=== PATIENT | male | born 1955 | race Caucasian/White ===

== ENCOUNTER → 2016-06-27 | Outpatient (CLI) | payer OTHER ==
--- NOTE | 2016-06-27 12:58 | CONS ---
DATE OF CONSULTATION: Consultation note for panic attacks. This is a 61-year-old male patient who is coming in today, reporting to snore and reporting to wake up with panic attacks. He reports episodes of at least twice or 3 times where he wakes up in the middle of the night, very much anxious and panicky and these panic attacks at times are very bad to the point where the patient feels the room is squeezing on him and he has to leave the house, drive around and relax and calm down for around 1/2 hour to 45 minutes. Following that, he is able to come back home and go to bed. The patient is a . He has no history of PTSD. No history of nightmares. He has occasional dreams. No anxiety. No depression. Of interest is that these episodes do not occur during the day and predominantly occurring at night. He tells me that there have been constantly occurring for the past 10 years in a frequency of twice or 3 times a month. Denies having to wake up in the middle of night choking or gasping for air. No reported witnessed apneas according to the . He goes to bed around 1 a.m. to 2 a.m. and wakes up around 9 a.m. in the morning. He averages at least 7 to 8 hours of sleep per night. No sleepwalking. No sleeptalking. No sleep paralysis, hallucinations or cataplexy. Weight has been stable. He sleeps on his side, drinks around 3 to 4 cups of caffeinated beverages a day. No other psychiatric history for now. No substance abuse. No alcoholism. PAST MEDICAL HISTORY: 1. Hypertension, untreated. 2. He has panic attacks. PAST SURGICAL HISTORY: None. Allergies are none. Medications are none. Family history is negative for sleep apnea. SOCIAL HISTORY: Positive smoker. Social alcohol drinker. No substance abuse. REVIEW OF SYSTEMS: A 12-point review of systems was done. Positive findings were mentioned above. Denies having any nocturnal heartburn, restlessness in the lower extremities. No reported nocturia. The patient denies waking up choking and gasping for air. Knowing no history of claustrophobia, no depression, no sexual dysfunction. BP is 190/90, pulse is 90, respirations 16, temperature 97.9, sats are 96% on room air. Weight is 229. Height is 6, 0. BMI is 31. Neck size 16-3/4. GENERAL APPEARANCE: Calm, comfortable. HEENT: Negative for JVD, no goiter or neck masses. LUNGS: Clear to auscultation. HEART: Heart sounds are regular rate and rhythm, normal S1, S2. No S3. No S4. No murmurs. Abdomen is soft and nontender. No organomegaly. EXTREMITIES: No edema, cyanosis, or clubbing. IMPRESSION: 1. Nocturnal panic attacks. Rule out the severe sleep breathing disorder. 2. Hypertension. PLAN: I am convince that the patient is having episodes of panic attack; however, the unusual finding is that these episodes are occurring mainly at nighttime and typically anxiety and panic attacks occur any time during the day and I am a bit surprised that these episodes are not occurring during the day while he is awake. As such, an underlying sleep breathing disorder cannot be completely excluded. I have talked to the patient of treatments available for this type of condition. He obviously may be a candidate for SSRI treatment; however, he did not want to go on a maintenance treatment for now. He opted to go for p.r.n. treatment and I have offered this patient Xanax 0.5 mg to be taken only when he wakes up very panicky in the middle of the night. Meanwhile, he was advised to go on a maintenance treatment such as an SSRI if the symptoms become more frequent. A home sleep study also will be done to rule out underlying obstructive sleep apnea and make further recommendations accordingly.
== END ==
LOC: SLEEP 10:05
PROVIDERS: ATTEND Internal Medicine Critical Care Medicine
DX: R06.83 Snoring (principal); I10 Essential (primary) hypertension; Z87.891 Personal history of nicotine dependence
CPT/HCPCS: 99211

== ENCOUNTER → 2017-07-13 | Outpatient (CLI) | payer OTHER ==
--- NOTE | 2017-07-18 09:09 | P.ARTDOP ---
Arterial Doppler LOWER EXTREMITY ARTERIAL DOPPLER: DATE OF SERVICE: 07/13/2017 Reason for study: Calf claudication. Doppler waveforms: Multiphasic at the femorals and left popliteal. Atypical below the femoral on the right and below the popliteal on the left.. Pulse volume recording: []. Pressure gradients: Across the thigh and across the knee. Ankle-brachial indices: 0.4 bilaterally. Toe pressures: [] on the right, [] on the left Impression: Moderate bilateral femoral popliteal occlusive disease. Clinical correlation recommended. Suggests vascular surgical consultation.
== END ==
LOC: RADUSWWP 13:29
DX: M79.661 Pain in right lower leg (principal)
CPT/HCPCS: 93923

== ENCOUNTER → 2021-11-25 | Day surgery (SDC) | payer OTHER ==
[2021-11-24 11:45] VITALS: BMI 28.2
[~2021-11-25] MED LIST: LACTATED RINGERS 1,000 ML IV SCH
== END ==
LOC: ORWHC2ENDO 11:46
PROVIDERS: ATTEND Internal Medicine Gastroenterology
DX: Z53.8 Procedure and treatment not carried out for other reasons (principal); R19.5 Other fecal abnormalities